=== PATIENT | male | born 2000 | race Caucasian/White ===

== ENCOUNTER 2024-02-22 18:04 | Emergency (ER) | payer MEDICAID ==
[~2024-02-22] VITALS: Ht 175.3 cm; Wt 73.0 kg
[2024-02-22 18:24] VITALS: BP 160/91; PULSE 99; RESP 16; TEMP 98.6; O2SAT 99
== END 2024-02-22 23:49 | disposition left against medical advice (07) ==
LOC: ER 18:04
DX: R07.9 Chest pain, unspecified (principal); Z53.21 Procedure and treatment not carried out due to patient leaving prior to being seen by health care provider
CPT/HCPCS: 71045; 93005